=== PATIENT | female | born 2000 | race Caucasian/White ===

== ENCOUNTER 2021-03-21 20:37 | Emergency (ER) | payer BC ==
[~2021-03-21] VITALS: Ht 160 cm; Wt 83.9 kg
== END 2021-03-21 22:29 | disposition home or self-care (01) ==
LOC: ED 20:37
DX: L50.9 Urticaria, unspecified (principal)
CPT/HCPCS: 99282; Q0163

== ENCOUNTER 2022-09-09 11:47 | Emergency (ER) | payer OTHER ==
[~2022-09-09] VITALS: Ht 160 cm; Wt 99.7 kg
== END 2022-09-09 15:34 | disposition home or self-care (01) ==
LOC: ED 11:47
DX: O20.0 Threatened abortion (principal); Z3A.01 Less than 8 weeks gestation of pregnancy
CPT/HCPCS: 36415; 80048; 81001; 84702; 85025; 86900; 86901; 99284

== ENCOUNTER 2024-10-16 00:27 | Emergency (ER) | payer OTHER ==
[~2024-10-16] VITALS: Ht 160 cm; Wt 114.8 kg
[~2024-10-16 00:27] MED LIST: AMOXICILLIN500 MG PO; ONDANSETRON ODT4 MG PO
[2024-10-16 01:09] LABS: BASOPHILS 0.3 % (0-2); EOSINOPHILS 2.9 % (0-6); HEMATOCRIT 31.3 % (35.0-50.0); HEMOGLOBIN 10.7 g/dL (12.0-18.0); MCH 24.8 (27-36); MCHC 34.1 g/dl (30-36); MCV 72.8 fl (81-99); MONOCYTES 5.9 % (0-12); NEUTROPHILS 74.9 % (39-80); PLATELET COUNT 270 K/uL (140-440); RDW 16.2 (10.5-15.0)
[2024-10-16] MEDS ORDERED: ALBUTEROL/IPRATROPIUM 3 ML NEB INH ONE (01:15)
[2024-10-16 01:18] LABS: ALBUMIN 2.5 g/dL (3.4-5.0); ALBUMIN/GLOBULIN RATIO 0.69 (1.1-2.4); ANION GAP 13.2 (7-21); BILIRUBIN, TOTAL 0.3 ng/dL (0.2-1.0); BUN/CREATININE RATIO 7.54 (6.0-28.6); CALCIUM 8.8 mg/dL (8.5-10.1); CREATININE, SERUM 0.53 mg/dL (0.55-1.02); POTASSIUM 3.2 mmol/L (3.5-5.1); PROTEIN, TOTAL 6.1 g/dL (6.4-8.2)
[2024-10-16 01:46] LABS: INFLUENZA B NAA NEGATIVE (NEGATIVE); RESPIRATORY SYNCYTIAL VIR NAA NEGATIVE (NEGATIVE)
[2024-10-16] MEDS ORDERED: hydrALAZINE HCL 20 MG/ML VIAL IV ONE ×2 (02:15→04:15)
[2024-10-16 02:26] LABS: BILIRUBIN, URINE NEGATIVE (negative); BLOOD/HGB, URINE NEGATIVE (Negative); KETONE, URINE NEGATIVE (Negative); LEUK ESTERASE, URINE NEGATIVE (negative); NITRITE, URINE NEGATIVE (negative); PH, URINE 7.5 (5-7)
[2024-10-16] MEDS ORDERED: ACETAMINOPHEN 500 MG TAB PO ONE (02:30)
[2024-10-16 02:43] LABS: BACTERIA, URINE 1+ /hpf (negative); COLLECTION TYPE, URINE CLEAN CATCH; CRYSTALS, URINE AMORPHOUS PHOSPH 1+ (0-1+); EPITHELIAL CELLS, URINE SQUAMOUS 1+ /lpf (0-1+); RED BLOOD CELLS, URINE 0-1 /hpf (0-5); REFLEX CULTURE, URINE No (No)
[2024-10-16] MEDS ORDERED: ALBUTEROL SULFATE 0.083% 3 ML VIAL INH ONE (03:15)
[2024-10-16] MEDS ORDERED: CEPHALEXIN MONOHYDRATE 500 MG CAP PO ONE (03:15)
[2024-10-16] MEDS ORDERED: BUDESONIDE 0.5 MG/2 ML VIAL INH ONE (03:15)
[2024-10-16] MEDS ORDERED: INHALER, ASSIST DEVICES 1 EACH SPACER MISC ONE (03:45)
[2024-10-16] MEDS ORDERED: MAGNESIUM SULFATE 2 GM/50 ML BAG IV ONE (04:30)
[2024-10-16] MEDS ORDERED: ondansetron HCL 4 MG/2 ML VIAL IV ONE (05:15)
[2024-10-16] MEDS ORDERED: CEPHALEXIN500 M1 PO (06:10)
[2024-10-16 06:16] VITALS: BP 149/87
== END 2024-10-16 06:17 | disposition home or self-care (01) ==
LOC: ED 00:27
PROVIDERS: Emergency Medicine
DX: O26.893 Other specified pregnancy related conditions, third trimester (principal); R06.02 Shortness of breath; O16.3 Unspecified maternal hypertension, third trimester; Z3A.36 36 weeks gestation of pregnancy; Z79.899 Other long term (current) drug therapy
CPT/HCPCS: 36415; 80053; 81001; 85025; 87502; 94640; 96374; 96375; 96376; 99285-25; A9270; J0360; J2405; J3475; U0002

== ENCOUNTER 2024-10-19 12:02 | Inpatient (IN) | payer OTHER ==
[2024-10-19 12:15] LABS: HEMATOCRIT 33.7 % (35.0-50.0); HEMOGLOBIN 11.1 g/dL (12.0-18.0); MCH 24.5 (27-36); MCHC 33.1 g/dl (30-36); RBC 4.55 M/ul (4.3-5.7); RDW 16.9 (10.5-15.0)
[2024-10-19 12:29] LABS: ALBUMIN 2.6 g/dL (3.4-5.0); ALBUMIN/GLOBULIN RATIO 0.62 (1.1-2.4); ANION GAP 13.4 (7-21); BILIRUBIN, TOTAL 0.4 ng/dL (0.2-1.0); BUN/CREATININE RATIO 7.27 (6.0-28.6); CALCIUM 8.9 mg/dL (8.5-10.1); CREATININE, SERUM 0.55 mg/dL (0.55-1.02); POTASSIUM 3.4 mmol/L (3.5-5.1); PROTEIN, TOTAL 6.8 g/dL (6.4-8.2)
[2024-10-19 12:41] LABS: CREATININE, RANDOM URINE 251.72 mg/dL (NOT ESTABLISHED); PROTEIN/CREATININE RATIO 0.18 mg/mg (0.010-0.107)
[2024-10-19] MEDS ORDERED: ACETAMINOPHEN 500 MG TAB PO ONE (14:30)
[2024-10-19] MEDS ORDERED: ACETAMINOPHEN 500 MG TAB ONE (14:33)
[2024-10-19] MEDS ORDERED: LABETALOL HCL 100 MG/20 ML MDV ONE (14:52)
[2024-10-19] MEDS ORDERED: LABETALOL HCL 100 MG/20 ML MDV IV ONE (15:15)
[2024-10-19] MEDS ORDERED: NIFEdipine XL 30 MG TAB PO ONE (15:15)
[2024-10-19] MEDS ORDERED: MAGNESIUM HYDROXIDE/AL HYDROX 30 ML CUP PO PRN (16:45)
[2024-10-19] MEDS ORDERED: CALCIUM CARBONATE 500 MG CHEW PO PRN (16:45)
[2024-10-19] MEDS ORDERED: hydrALAZINE HCL 20 MG/ML VIAL ONE (16:55)
[2024-10-19] MEDS ORDERED: hydrALAZINE HCL 20 MG/ML VIAL IV PRN ×2 (17:00→17:45)
[2024-10-19 17:49] LABS: ABO O; RH POSITIVE
[2024-10-19 17:50] LABS: ANTIBODY SCREEN NEGATIVE
[2024-10-19 17:50] LABS: AMPHETAMINES, URINE NEGATIVE (NEGATIVE); BARBITURATES, URINE NEGATIVE (NEGATIVE); BENZODIAZEPINE, URINE NEGATIVE (NEGATIVE); BUPRENORPHINE, URINE NEGATIVE (NEGATIVE); CANNABINOID, URINE POSITIVE (NEGATIVE); COCAINE, URINE NEGATIVE (NEGATIVE); ECSTASY, URINE NEGATIVE (NEGATIVE); FENTANYL, URINE NEGATIVE (NEGATIVE); METHADONE, URINE NEGATIVE (NEGATIVE); OPIATES, URINE NEGATIVE (NEGATIVE); OXYCODONE, URINE NEGATIVE (NEGATIVE); PHENCYCLIDINE, URINE NEGATIVE (NEGATIVE)
[2024-10-19 18:01] VITALS: BP 142/79
[2024-10-20] MEDS ORDERED: diphenhydrAMINE HCL 25 MG CAP PO ONE ×2 (00:15→00:30)
[2024-10-20] MEDS ORDERED: ACETAMINOPHEN 500 MG TAB PO PRN ×2 (00:15→00:30)
[2024-10-20] MEDS ORDERED: BUDESONIDE 0.5 MG/2 ML VIAL INH SCH (10:05)
[2024-10-20] MEDS ORDERED: ALBUTEROL SULFATE 0.083% 3 ML VIAL INH PRN ×2 (10:15→23:00)
[2024-10-20] MEDS ORDERED: miSOPROStoL 25 MCG TAB PV SCH (12:15)
[2024-10-20] MEDS ORDERED: miSOPROStoL 25 MCG TAB PV PRN (15:45)
[2024-10-20] MEDS ORDERED: ALBUTEROL/IPRATROPIUM 3 ML NEB INH SCH (20:00)
[2024-10-20] MEDS ORDERED: diphenhydrAMINE HCL 50 MG CAP PO ONE (22:00)
--- NOTE | 2024-10-21 04:00 | NUR ---
CURRENTLY KATIE IS ASLEEP, THEREFORE RT DID NOT PROVIDE 0400 BREATHING TREATMENT
[2024-10-21] MEDS ORDERED: OXYTOCIN/0.9 % SODIUM CHLORIDE 500 ML IV SCH ×2 (05:15→18:15)
[2024-10-21] MEDS ORDERED: ALBUTEROL/IPRATROPIUM 3 ML NEB INH SCH (08:00)
[2024-10-21] MEDS ORDERED: ROPIVACAINE 0.2% 200 ML BAG ONE (09:53)
[2024-10-21] MEDS ORDERED: fentaNYL citrate 100 MCG/2 ML VIAL ONE (09:53)
[2024-10-21] MEDS ORDERED: LACTATED RINGER'S 1,000 ML IV PRN (10:00)
[2024-10-21] MEDS ORDERED: ROPIVACAINE 0.2% 200 ML BAG EPIDURAL SCH (10:30)
[2024-10-21] MEDS ORDERED: ePHEDrine sulfate 5 MG/ML SYRINGE IV PRN (10:30)
[2024-10-21] MEDS ORDERED: LACTATED RINGER'S 2,000 ML IV ONE (10:30)
[2024-10-21] MEDS ORDERED: LACTATED RINGER'S 500 ML IV PRN (10:30)
[2024-10-21] MEDS ORDERED: ePHEDrine KIT FOR FBC IV ONE (15:54)
[2024-10-21] MEDS ORDERED: MAGNESIUM HYDROXIDE/AL HYDROX 30 ML CUP PO PRN (18:15)
[2024-10-21] MEDS ORDERED: BENZOCAINE 60 ML AEROSOL TOP PRN (18:15)
[2024-10-21] MEDS ORDERED: HYDROCORTISONE ACETATE 25 MG SUPP PR PRN (18:15)
[2024-10-21] MEDS ORDERED: OXYCODONE HCL 5 MG TAB PO PRN (18:15)
[2024-10-21] MEDS ORDERED: OXYCODONE/APAP 5/325 TAB PO PRN (18:15)
[2024-10-21] MEDS ORDERED: HYDROCODONE/ACETA 5/325 TAB PO PRN (18:15)
[2024-10-21] MEDS ORDERED: ACETAMINOPHEN 325 MG TAB PO PRN (18:15)
[2024-10-21] MEDS ORDERED: CALCIUM CARBONATE 500 MG CHEW PO PRN (18:15)
[2024-10-21] MEDS ORDERED: WITCH HAZEL/GLYCERIN 1 EA PAD TOP PRN (18:15)
[2024-10-21] MEDS ORDERED: MAGNESIUM HYDROXIDE 30 ML UDC PO PRN (18:15)
[2024-10-21] MEDS ORDERED: IBUPROFEN 600 MG TAB PO PRN (18:15)
[2024-10-21] MEDS ORDERED: levalbuterol HCL 1.25 MG/0.5 ML VIAL INH SCH (20:06)
[2024-10-21] MEDS ORDERED: BUDESONIDE 0.5 MG/2 ML VIAL INH SCH (20:06)
[2024-10-21] MEDS ORDERED: SENNOSIDES/DOCUSATE 1 EA TAB PO SCH (21:00)
[2024-10-22 05:48] LABS: HEMATOCRIT 31.1 % (35.0-50.0); HEMOGLOBIN 10.2 g/dL (12.0-18.0); MCH 24.2 (27-36); MCV 73.5 fl (81-99); RBC 4.23 M/ul (4.3-5.7); RDW 17.1 (10.5-15.0)
== END 2024-10-23 11:20 | disposition home or self-care (01) | DRG 806 ==
LOC: LAB 12:02 → FBCO 12:02 → FBC 16:55
PROVIDERS: Obstetrics & Gynecology; ADMIT Obstetrics & Gynecology; ATTEND Obstetrics & Gynecology
PROC: 10E0XZZ Delivery of Products of Conception, External Approach (ICD-10-PCS; principal; 2024-10-21)
PROC: 10907ZC Drainage of Amniotic Fluid, Therapeutic from Products of Conception, Via Natural or Artificial Opening (ICD-10-PCS; 2024-10-21)
PROC: 0UQMXZZ Repair Vulva, External Approach (ICD-10-PCS; 2024-10-21)
PROC: 4A1H7CZ Monitoring of Products of Conception, Cardiac Rate, Via Natural or Artificial Opening (ICD-10-PCS; 2024-10-21)
PROC: 10H073Z Insertion of Monitoring Electrode into Products of Conception, Via Natural or Artificial Opening (ICD-10-PCS; 2024-10-21)
PROC: 10H07YZ Insertion of Other Device into Products of Conception, Via Natural or Artificial Opening (ICD-10-PCS; 2024-10-21)
DX: O14.94 Unspecified pre-eclampsia, complicating childbirth (principal); J45.901 Unspecified asthma with (acute) exacerbation; Z37.0 Single live birth; O98.52 Other viral diseases complicating childbirth; Z3A.37 37 weeks gestation of pregnancy; I95.9 Hypotension, unspecified; O99.42 Diseases of the circulatory system complicating childbirth; O99.53 Diseases of the respiratory system complicating the puerperium; O76 Abnormality in fetal heart rate and rhythm complicating labor and delivery; O70.0 First degree perineal laceration during delivery; B00.9 Herpesviral infection, unspecified; Z87.891 Personal history of nicotine dependence
CPT/HCPCS: 36415; 59025; 80053; 80307; 82570; 82803; 84156; 84550; 85027; 86850; 86900; 86901; 94640; 94760; A9270; G0463; J0360; J2795; J3010; J7121; Q0163

== ENCOUNTER 2024-10-30 19:26 | Emergency (ER) | payer OTHER ==
[~2024-10-30] VITALS: Ht 160 cm; Wt 106.6 kg
[~2024-10-30 19:26] MED LIST changes: +CEPHALEXIN500 M1 PO
--- OUTSIDE RECORDS SUMMARY | 2024-10-30 19:32 | XMS ---
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: [phone] Catrachito has no Care Guidelines for this patient. E.Celia VISIT COUNT (12 MO.) [address] TOTAL 3 NOTE: Visits indicate total known visits. 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 - Other specified related conditions, third trimester - Shortness of breath - Unspecified maternal hypertension, third trimester 04/29/2024 20:14 [facility] [place] TYPE: Emergency DIAGNOSES: - 12 weeks gestation of - Abdominal Cramping - cramping, 3 mo INPATIENT VISIT TRACKING (12 MO.) 10/19/2024 16:55 [facility] [place] TYPE: [facility] COMPLAINT: - ANTHEPARTUM DIAGNOSES: - 37 weeks gestation of - 37 weeks gestation of - Abnormality in heart rate and rhythm complicating labor and delivery - Abnormality in heart rate and rhythm complicating labor and delivery - Diseases of the circulatory system complicating childbirth - Diseases of the circulatory system complicating childbirth - Diseases of the respiratory system complicating the puerperium - Diseases of the respiratory system complicating the puerperium - First degree perineal laceration during delivery - First degree perineal laceration during delivery - Herpesviral infection, unspecified - Herpesviral infection, unspecified - Hypotension, unspecified - Hypotension, unspecified - Other viral diseases complicating childbirth - Other viral diseases complicating childbirth - Personal history of nicotine dependence - Personal history of nicotine dependence - Single live - Single live - Unspecified asthma with (acute) exacerbation - Unspecified asthma with (acute) exacerbation - Unspecified pre-eclampsia, complicating childbirth [email or web address]
[2024-10-30] MEDS ORDERED: BUDESONIDE-FO10.2 G1 (19:38)
[2024-10-30] MEDS ORDERED: NIFEdipine XL 30 MG HOME.PACK PO ONE (21:15)
[2024-10-30] MEDS ORDERED: NIFEDIPINE ER30 M1 PO (21:18)
[2024-10-30 21:36] VITALS: BP 141/92
== END 2024-10-30 21:36 | disposition home or self-care (01) ==
LOC: ED 19:26
DX: O14.95 Unspecified pre-eclampsia, complicating the puerperium (principal)
CPT/HCPCS: 93971; 99284-25